=== PATIENT | male | born 1955 | race Two or more races ===

== ENCOUNTER 2021-04-04 14:34 | Emergency (ER) | payer MEDICAID ==
[~2021-04-04] VITALS: Ht 165.1 cm; Wt 90.7 kg
--- NOTE | 2021-04-04 15:08 | NUR ---
TO ER BED 4 FOR MD SHETTY,NAD, WOUND CARE DONE,WAITING FOR PROVIDER FOR EVAL
--- NOTE | 2021-04-04 15:12 | NUR ---
DAUGHTER AT BEDSIDE
[2021-04-04] MEDS ORDERED: HYDROCODONE/APAP 5/325MG TABLET ONE (16:26)
[2021-04-04] MEDS: HYDROCODONE/APAP 5/325MG TABLET PO ONE (16:31)
[2021-04-04 17:05] VITALS: BP 144/90
== END 2021-04-04 17:05 | disposition home or self-care (01) ==
LOC: ER 14:39
DX: S06.0X0A Concussion without loss of consciousness, initial encounter (principal); S01.81XA Laceration without foreign body of other part of head, initial encounter; R51.9 Headache, unspecified; I10 Essential (primary) hypertension; E11.9 Type 2 diabetes mellitus without complications; W22.8XXA Striking against or struck by other objects, initial encounter; Y93.89 Activity, other specified; Y92.89 Other specified places as the place of occurrence of the external cause; Y99.8 Other external cause status
CPT/HCPCS: 12011; 70450; 99284; A6403

== ENCOUNTER 2021-04-22 17:55 | Emergency (ER) | payer MEDICAID ==
[~2021-04-22] VITALS: Ht 172.7 cm; Wt 70.3 kg
[2021-04-22 18:12] VITALS: BP 132/81
--- NOTE | 2021-04-22 18:31 | NUR ---
Patient discharged to home in stable condition. Written and verbal after care instructions given. Patient verbalizes understanding of instruction.
== END 2021-04-22 18:31 | disposition home or self-care (01) ==
LOC: ER 17:56
DX: S01.01XD Laceration without foreign body of scalp, subsequent encounter (principal); I10 Essential (primary) hypertension; E11.9 Type 2 diabetes mellitus without complications; X58.XXXD Exposure to other specified factors, subsequent encounter

== ENCOUNTER 2021-05-14 07:46 | Emergency (ER) | payer MEDICAID ==
[~2021-05-14] VITALS: Ht 172.7 cm; Wt 90.7 kg
--- NOTE | 2021-05-14 07:59 | NUR ---
BIB SELF C/O ABDOMINAL PAIN IN THE GENERAL ABDOMINAL AREA, NONRADIATING. PAIN IS RATED 8/10. ADMITS BLOATING, NAUSEA/VOMITING, DIARRHEA X1 DAY. A&OX4, AMBULATORY, PULSES 2+ BILATERALLY, SKIN IS WARM AND DRY. ABDOMEN IS DISTENDED AND TENDER TO PALPATION. AWAITING MD SHETTY.
--- NOTE | 2021-05-14 08:12 | NUR ---
GLASS SETTER AT BEDSIDE
--- NOTE | 2021-05-14 08:13 | NUR ---
URINE SAMPLE OBTAINED AND SENT TO LAB
--- NOTE | 2021-05-14 08:13 | NUR ---
BLOOD OBTAINED AND SENT TO LAB
--- NOTE | 2021-05-14 08:14 | NUR ---
XRAY AT BEDSIDE
[2021-05-14] MEDS ORDERED: ONDANSETRON HCL/PF 4 MG/2 ML VIAL ONE (08:17)
[2021-05-14] MEDS: IV NS 0.9% 1,000 ML BAG IV ONE (08:20)
[2021-05-14] MEDS: ONDANSETRON HCL/PF 4 MG/2 ML VIAL IVP ONE (08:20)
[2021-05-14 08:29] LABS: BASOPHILS % (AUTO) 0.1 % (0.0-2.0); EOSINOPHILS % (AUTO) 1.3 % (0.0-6.0); HEMATOCRIT 44 % (39-51); HEMOGLOBIN 14.6 g/dL (13.5-17.5); LYMPHOCYTES # (AUTO) 0.8 K/uL (0.8-4.8); LYMPHOCYTES % (AUTO) 16.7 % (20.0-44.0); MEAN CORPUSCULAR HGB CONC 33 g/dl (31.0-36.0); MEAN CORPUSCULAR VOLUME 93 fL (80-96); MONOCYTES # (AUTO) 0.5 K/uL (0.1-1.30); MONOCYTES % (AUTO) 11.4 % (2.0-12.0); NEUTROPHILS # (AUTO) 3.2 K/uL (1.8-8.9); NEUTROPHILS % (AUTO) 70.5 % (43.0-81.0); PLATELET COUNT (AUTO) 191 K/uL (150-450); RED BLOOD CELL COUNT(AUTO) 4.73 MIL/uL (4.5-6.0); WHITE BLOOD COUNT (AUTO) 4.5 K/uL (4.3-11.0)
[2021-05-14 08:45] LABS: BILIRUBIN,URINE NEGATIVE (NEGATIVE); COLOR,URINE DARK YELLOW (YELLOW); LEUKOCYTE ESTERASE ,URINE NEGATIVE (NEGATIVE); NITRITE, URINE NEGATIVE (NEGATIVE); PROTEIN,URINE NEGATIVE (NEGATIVE); UGLUCOSE NEGATIVE (NEGATIVE); UROBILINOGEN,URINE 0.2 EU/dL (0.2)
[2021-05-14 09:06] LABS: CALCIUM, SERUM 7.5 mg/dL (8.5-10.1); CREATININE 0.7 mg/dL (0.6-1.3); POTASSIUM 3.3 mmol/L (3.5-5.1)
[2021-05-14 09:34] LABS: ALBUMIN 3.6 g/dL (3.4-5.0); BILIRUBIN,DIRECT 0.2 mg/dL (0.0-0.2); BILIRUBIN,TOTAL 0.5 mg/dL (0.2-1.0); TOTAL PROTEIN, SERUM 7.6 g/dL (6.4-8.2)
[2021-05-14 09:54] LABS: BACTERIA,URINE Few /HPF (None Seen); SQUAMOUS EPITHELIAL CELL,UR Rare /HPF (None Seen); WBC,URINE 0-2 /HPF (0-3)
[2021-05-14] MEDS ORDERED: FAMO-131 PO (11:21)
[2021-05-14] MEDS ORDERED: ONDA4TAB5 PO (11:21)
--- NOTE | 2021-05-14 11:30 | NUR ---
The patient is alert and oriented x4. Denies SOB. Respiration regular and unlabored. Denies pain. IV removed. Catheter intact and site benign. Pressure and 4x4 applied to site. No bleeding noted.Patient discharged to home in stable condition. Written and verbal after care instructions given. Patient verbalizes understanding of instruction.
[2021-05-14 11:31] VITALS: BP 124/67
== END 2021-05-14 11:31 | disposition home or self-care (01) ==
LOC: ER 07:50
DX: R10.84 Generalized abdominal pain (principal); R11.2 Nausea with vomiting, unspecified; R19.7 Diarrhea, unspecified; I10 Essential (primary) hypertension; E11.9 Type 2 diabetes mellitus without complications; Z79.899 Other long term (current) drug therapy
CPT/HCPCS: 36415; 71045; 80048; 80076; 81001; 83690; 85025; 93005; 96361; 96374; 99285; J2405; J7030

== ENCOUNTER 2022-03-12 21:53 | Emergency (ER) | payer MEDICAID ==
[~2022-03-12] VITALS: Ht 165.1 cm; Wt 83.9 kg
[~2022-03-12 21:53] MED LIST: FAMO-131 PO; ONDA4TAB5 PO
--- NOTE | 2022-03-12 22:25 | NUR ---
BIBFAMILY.L HAND 2ND DIGIT LACERATION BY NICHOLE. TETANUS NO UP TO DATE. PATIENT IS AAOX4. PLACED COMFORTABLY IN BED. VITALS CHECKED.
--- NOTE | 2022-03-12 22:41 | NUR ---
SEEN BY DR FELDMAN AT BEDSIDE.
--- NOTE | 2022-03-12 23:50 | NUR ---
SUTURING OF WOUND DONE BY DR FELDMAN UNDER LOCAL ANESTHESIA. PRESSURE DRESSING APPLIED.
[2022-03-13] MEDS ORDERED: TDAP [DIPH/PERTUSSIS/TET] 0.5 ML VIAL IM ONE ×2 (00:07)
--- NOTE | 2022-03-13 00:12 | NUR ---
Patient discharged to home in stable condition. Written and verbal after care instructions given. Patient verbalizes understanding of instruction.
[2022-03-13 01:10] VITALS: BP 154/78
== END 2022-03-13 00:30 | disposition home or self-care (01) ==
LOC: ER 22:36
DX: S61.211A Laceration without foreign body of left index finger without damage to nail, initial encounter (principal); I10 Essential (primary) hypertension; E11.9 Type 2 diabetes mellitus without complications; W26.8XXA Contact with other sharp object(s), not elsewhere classified, initial encounter; Y93.89 Activity, other specified; Y92.89 Other specified places as the place of occurrence of the external cause; Y99.8 Other external cause status
CPT/HCPCS: 90715